=== PATIENT | male | born 1950 | race Caucasian/White ===

== ENCOUNTER 2019-06-14 20:27 | Emergency (ER) | payer BC ==
[2019-06-14] MEDS ORDERED: Morphine 10 MG/ML VIAL ONE (22:06)
[2019-06-14] MEDS ORDERED: methylPREDNISolone Sod Succ/PF 125 MG/2 ML VIAL ONE (22:07)
[2019-06-14] MEDS ORDERED: Ketorolac Tromethamine 30 MG/ML VIAL ONE (22:07)
== END 2019-06-14 22:19 | disposition home or self-care (01) ==
LOC: SCSER 20:27
DX: M10.9 Gout, unspecified (principal); J18.9 Pneumonia, unspecified organism
CPT/HCPCS: 96372; 99283; J1885; J2270; J2930

== ENCOUNTER 2019-09-04 12:08 | Emergency (ER) | payer BC ==
[2019-09-04] MEDS ORDERED: Ketorolac Tromethamine 60 MG/2 ML VIAL ONE (12:40)
== END 2019-09-04 13:04 | disposition home or self-care (01) ==
LOC: SCSER 12:08
DX: M10.9 Gout, unspecified (principal); Z71.6 Tobacco abuse counseling
CPT/HCPCS: 96372; 99406; J1885